=== PATIENT | male | born 1980 | race Caucasian/White ===

== ENCOUNTER 2017-08-29 09:59 | Outpatient (CLI) | payer OTHER ==
[2017-08-29 10:38] LABS: MEAN CORPUSCULAR HEMOGLOBIN 29.8 pg (28.0-34.0); MEAN CORPUSCULAR VOLUME 90.2 fl (80.0-100.0)
[2017-08-29 10:48] LABS: eGFR (African) > 60; eGFR (Non-African) > 60
[2017-08-29 11:32] LABS: BASOPHILS % 1 % (0-2); EOSINOPHILS % 6 % (0-7); MONOCYTES % 9 % (0-11); SEGMENTED NEUTROPHILS % 44 % (39-79)
== END 2017-08-29 10:00 ==
LOC: LAB 09:59
PROVIDERS: ATTEND General Practice
DX: K76.9 Liver disease, unspecified (principal)
CPT/HCPCS: 80053; 85025